=== PATIENT | female | born 1980 | race Caucasian/White ===

== ENCOUNTER 2018-03-12 19:57 | Emergency (ER) | payer OTHER, BC ==
[~2018-03-12] VITALS: Ht 167.6 cm; Wt 78.5 kg
[~2018-03-12 19:57] MED LIST: BUPROPION; DOCU PO; HYDROCODON-ACE1 EAC7 PO; IBUPROFEN 600600 M1 PO; PNV DHA PO; PROZAC 20 MG20 MG PO
[2018-03-12] MEDS ORDERED: PAXIL10 MG PO (20:12)
[2018-03-12] MEDS ORDERED: WELLBUTRIN 75 M75 M1 PO (20:13)
[2018-03-12] MEDS ORDERED: RESTORIL7.5 M1 PO (20:14)
[2018-03-12 20:41] LABS: URINE BILIRUBIN NEGATIVE (Negative); URINE BLOOD TRACE (Negative); URINE CLARITY CLEAR; URINE COLOR YELLOW; URINE GLUCOSE-RANDOM NEGATIVE (Negative); URINE KETONES NEGATIVE (Negative); URINE LEUKOCYTES-REFLEX NEGATIVE (Negative); URINE NITRITE-REFLEX NEGATIVE (Negative); URINE PROTEIN NEGATIVE (Negative); URINE SPECIFIC GRAVITY <= 1.005 (1.005-1.030); URINE UROBILINOGEN 0.2 E.U./dl (0.2-1.0)
[2018-03-12 20:44] LABS: HEMATOCRIT 38.1 % (37.0-47.0); MCH 32.3 pg (26.0-34.0); MCHC 34.1 g/dL (28.0-37.0); MCV 94.7 fL (80.0-100.0); MPV 7.1 fl. (7.2-11.1); NUCLEATED RBCS 0 /100WBC; PLATELET COUNT* 315 thou/uL (150-400); RBC 4.02 mil/uL (4.20-5.00); RDW-CV 13.5 % (10.5-14.5); WBC 12.3 thou/uL (4.0-11.0)
[2018-03-12 20:52] LABS: CALCIUM 8.4 mg/dL (8.5-10.1); POTASSIUM 3.4 mmol/L (3.5-5.1)
[2018-03-12 20:57] LABS: ALBUMIN 3.5 g/dL (3.4-5.0); TOTAL BILIRUBIN 0.4 mg/dL (<0.1-1.0); TOTAL PROTEIN 7.2 g/dL (6.4-8.2)
[2018-03-12 21:06] LABS: ABSOLUTE LYMPHOCYTES 0.4 thou/uL (0.8-5.3); ABSOLUTE MONOCYTES 0.2 thou/uL (0.0-1.2); ABSOLUTE NEUTROPHILS 11.7 thou/uL (1.6-8.1)
[2018-03-12 21:07] LABS: PLATELET ESTIMATE ADEQUATE
[2018-03-12 21:52] LABS: INFLUENZA A ANTIGEN None Detected (None Detect); INFLUENZA B ANTIGEN None Detected (None Detect)
[2018-03-12] MEDS ORDERED: DOXYCYCLINE 10100 MG PO (22:45)
[2018-03-12] MEDS ORDERED: ZOFRAN ODT4 MG PO (22:45)
[2018-03-12 23:18] VITALS: BP 148/65
== END 2018-03-12 23:21 | disposition home or self-care (01) ==
LOC: M.ERS 19:57
PROVIDERS: Emergency Medicine
DX: K52.9 Noninfective gastroenteritis and colitis, unspecified (principal); F17.200 Nicotine dependence, unspecified, uncomplicated